=== PATIENT | male | born 1980 | race African-American/Black ===

== ENCOUNTER 2017-10-07 18:03 | Emergency (ER) | payer OTHER, MEDICAID, SELFPAY ==
--- NOTE | 2017-10-07 18:11 | ED.LOWEXIN ---
HPI - Extremity Injury (Lower) <GEORGIE Ortega - Last Filed: 10/07/17 22:18> General Chief Complaint: Extremity Injury, Lower Stated Complaint: LEFT ANKLE INJURY Time Seen by Provider: 10/07/17 18:11 Source: patient Mode of arrival: ambulatory Limitations: no limitations History of Present Illness HPI Narrative: 37-year-old male here for complaint of pain into his left ankle for the last 6 days. He states that he was playing basketball when he rolled his left ankle causing pain. He reports that he had good amount of swelling into the left ankle that has now resolved. He still has pain with ambulation to the medial aspect of the left ankle. He denies any direct trauma to the area. No other concerns or complaints at this time. He does report increased pain with ambulation. MD complaint: ankle injury Related Data Allergies Allergy/AdvReac Type Severity Reaction Status Date / Time No Known Drug Allergies Allergy Verified 10/07/17 18:19 Review of Systems <GEORGIE Ortega - Last Filed: 10/07/17 22:18> Eyes Denies change in vision, Denies eye discharge, Denies irritation and Denies loss of vision ENT Ears, Nose, Mouth, and Throat: Denies change in voice, Denies neck pain and Denies sore throat Cardiovascular Denies chest pain, Denies irregular heart rhythm, Denies lightheadedness, Denies palpitations, Denies dyspnea, Denies dyspnea on exertion and Denies orthopnea Respiratory Denies cough, Denies dyspnea, Denies dyspnea on exertion and Denies wheezing Gastrointestinal Gastrointestinal: Denies abdominal pain, Denies change in bowel habits, Denies diarrhea, Denies nausea and Denies vomiting Genitourinary Denies hematuria, Denies flank pain, Denies urinary incontinence and Denies urinary urgency Musculoskeletal Denies neck pain Comments: Left ankle pain Integumentary/Breasts Denies pruritus, Denies erythema, Denies rash and Denies wounds Neurologic Denies confusion and Denies loss of vision Psychiatric Denies anxiety, Denies confusion, Denies depression, Denies homicidal ideation and Denies suicidal ideation Endocrine Denies palpitations Hematologic/Lymphatic Denies easy bruising Allergic/Immunologic Denies wheezing Exam <GEORGIE Ortega - Last Filed: 10/07/17 22:18> Initial Vital Signs Initial Vital Signs: Vital Signs Temperature 98.4 F 10/07/17 18:14 Pulse Rate 78 10/07/17 18:14 Respiratory Rate 18 10/07/17 18:14 Blood Pressure 150/81 H 10/07/17 18:14 Pulse Oximetry 97 10/07/17 18:14 Const General: cooperative and well developed Nutritional Appearance: well nourished Orientation: alert, awake, oriented x3 and not confused HENMT Mouth: oral mucosae normal and moist mucous membranes Eyes Conjunctivae: conjunctivae normal Sclera: sclerae normal Pupils: PERRL EOM: EOM intact bilaterally Cardio Rate: regular rate Rhythm: regular rhythm Heart Sounds: no click, no gallops, no murmurs and no rubs Pulses: normal peripheral pulses Skin General: no rashes or lesions noted, No jaundice and No petechiae Neuro General: alert, oriented x3, gait normal and no focal motor deficits Speech: speech normal Extrem Other: Left ankle with no swelling no ecchymosis. No deformities. Full range of motion. Distal sensation is intact. Distal pulses are intact. <DO Deandra Cotto Last Filed: 10/08/17 02:28> Initial Vital Signs Initial Vital Signs: Vital Signs Temperature 98.4 F 10/07/17 18:14 Pulse Rate 78 10/07/17 18:14 Respiratory Rate 18 10/07/17 18:14 Blood Pressure 150/81 H 10/07/17 18:14 Pulse Oximetry 97 10/07/17 18:14 Course <GEORGIE Ortega - Last Filed: 10/07/17 22:18> Orders Ordered: ED Orders 10/07/17 18:32 XR ankle LT min 3V Stat 10/07/17 18:46 XR foot LT min 3V Stat Vital Signs - 8 hr 10/07/17 20:45 Pulse Rate 81 Respiratory Rate 16 Blood Pressure 144/78 H Pulse Oximetry 99 <DO Deandra Cotto Last Filed: 10/08/17 02:28> Orders Ordered: ED Orders 10/07/17 18:32 XR ankle LT min 3V Stat 10/07/17 18:46 XR foot LT min 3V Stat Vital Signs - 8 hr 10/07/17 20:45 Pulse Rate 81 Respiratory Rate 16 Blood Pressure 144/78 H Pulse Oximetry 99 MDM - Extremity Injury (Lower) <GEORGIE Ortega Last Filed: 10/07/17 22:18> Imaging Data Left foot : Radiologist's impression: PROCEDURE: XR FOOT LT MIN 3V INDICATIONS: swelling for a week TECHNIQUE: 30 views of the foot were acquired. COMPARISON: None. FINDINGS: Bones: No fractures or dislocations. No suspicious bony lesions. Soft tissues: No tibiotalar joint effusion. Achilles tendon appears normal. IMPRESSION: No acute fracture. No osseous lesion. If clinical suspicion and/or symptoms persist, further assessment with repeat plainfilms, or advanced imaging (e.g., CT, MRI, or bone scan) may be helpful for further assessment. Dictated by: Geraldine Rodriguez M.D. on 10/07/2017 at 19:06 Approved by: Geraldine Rodriguez M.D. on 10/07/2017 at 19:07 Left ankle : Radiologist's impression: PROCEDURE: XR ANKLE LT MIN 3V INDICATIONS: swelling over a week TECHNIQUE: 3 views of the ankle were acquired. COMPARISON: None. FINDINGS: Bones: No fractures or dislocations. Ankle mortise is normally aligned. No suspicious bony lesions. Soft tissues: No tibiotalar joint effusion. Achilles tendon appears normal. IMPRESSION: No acute fracture. No osseous lesion. If clinical suspicion and/or symptoms persist, further assessment with repeat plainfilms, or advanced imaging (e.g., CT, MRI, or bone scan) may be helpful for further assessment. Dictated by: Geraldine Rodriguez M.D. on 10/07/2017 at 19:05 Approved by: Geraldine Rodriguez M.D. on 10/07/2017 at 19:06 [facility] Narrative Medical decision making narrative: X-ray the left ankle left foot were obtained were negative for any acute findings. Signs and symptoms presents as acute sprain into the left ankle. He is placed in a stirrup splint for comfort and support. Crutches for nonweightbearing. Follow up with primary care provider next week for re-evaluation. If still having pain to left ankle recommend MRI for further evaluation. For any worsening symptoms return to the emergency room. Rest ankle allow it to heal. Discharge Plan Departure Patient Disposition: Home, Self-Care Clinical Impression: Left ankle sprain Discharge Date/Time: 10/07/17 20:47 Interventions: ED Discharge Assessment Last Done: 10/07/17 20:45 Instructions: Ankle Sprain Activity Restrictions/Additional Instructions: X-ray the left ankle left foot were obtained were negative for any acute findings. Signs and symptoms presents as acute sprain into the left ankle. You have been placed in a splint for comfort and support use as directed. Crutches for nonweightbearing also use as directed. Follow up with primary care provider next week for re-evaluation. [id number] ibuprofen as needed for any discomfort. If still having pain to left ankle recommend MRI for further evaluation. For any worsening symptoms return to the emergency room. Rest ankle allow it to heal. Referrals: Terri Ace MD [Primary Care Provider] - <Katelyn Jarrett DO - Last Filed: 10/08/17 02:28> Cosign ED Attending Cosignature Attestation: I was immediately available in the department for consultation. Documentation has been reviewed. I agree with assessment and plan.
[2017-10-07 18:14] VITALS: BP 150/81; PULSE 78; RESP 18; TEMP 36.9; O2SAT 97
--- NOTE | 2017-10-07 18:32 | DI.RAD.S_ITS ---
PROCEDURE: XR ANKLE LT MIN 3V INDICATIONS: swelling over a week TECHNIQUE: 3 views of the ankle were acquired. COMPARISON: None. FINDINGS: Bones: No fractures or dislocations. Ankle mortise is normally aligned. No suspicious bony lesions. Soft tissues: No tibiotalar joint effusion. Achilles tendon appears normal. IMPRESSION: No acute fracture. No osseous lesion. If clinical suspicion and/or symptoms persist, further assessment with repeat plainfilms, or advanced imaging (e.g., CT, MRI, or bone scan) may be helpful for further assessment. Dictated by: Geraldine Rodriguez M.D. on 10/07/2017 at 19:05 Approved by: Geraldine Rodriguez M.D. on 10/07/2017 at 19:06
--- NOTE | 2017-10-07 18:46 | DI.RAD.S_ITS ---
PROCEDURE: XR FOOT LT MIN 3V INDICATIONS: swelling for a week TECHNIQUE: 30 views of the foot were acquired. COMPARISON: None. FINDINGS: Bones: No fractures or dislocations. No suspicious bony lesions. Soft tissues: No tibiotalar joint effusion. Achilles tendon appears normal. IMPRESSION: No acute fracture. No osseous lesion. If clinical suspicion and/or symptoms persist, further assessment with repeat plainfilms, or advanced imaging (e.g., CT, MRI, or bone scan) may be helpful for further assessment. Dictated by: Geraldine Rodriguez M.D. on 10/07/2017 at 19:06 Approved by: Geraldine Rodriguez M.D. on 10/07/2017 at 19:07
--- NOTE | 2017-10-07 20:43 | PC.NURSE ---
pt stated he has used a stirup splint and crutches in the past. pt applied splint and nurse checked for proper fit. pt fit splint properly. pt demonstrated proper crutch use.
[2017-10-07 20:45] VITALS: BP 144/78; PULSE 81; RESP 16; O2SAT 99
== END 2017-10-07 20:47 | disposition home or self-care (01) ==
PROVIDERS: Emergency Provider Nurse Practitioner Family; Family Provider Nutritionist; PCP Nutritionist
DX: S93.402A Sprain of unspecified ligament of left ankle, initial encounter (principal); W18.49XA Other slipping, tripping and stumbling without falling, initial encounter; Y93.67 Activity, basketball
CPT/HCPCS: 29540; 73610; 73630; 99282; 99283

== ENCOUNTER 2017-10-20 12:19 | Emergency (ER) | payer OTHER, MEDICAID, SELFPAY ==
[2017-10-20 12:20] VITALS: BP 123/86; PULSE 61; RESP 16; TEMP 37; O2SAT 98
[2017-10-20 12:34] VITALS: BP 117/79; PULSE 59; RESP 15; TEMP 36.7; O2SAT 99
--- NOTE | 2017-10-20 12:36 | ED.CHESTPAIN ---
HPI - Chest Pain <GEORGIE Ortega - Last Filed: 10/20/17 22:37> General Chief Complaint: Chest Pain Stated Complaint: Chest pain Time Seen by Provider: 10/20/17 12:35 Source: patient Mode of arrival: ambulatory Limitations: no limitations History of Present Illness HPI narrative: 37-year-old male here for complaint of having right-sided chest pain that started 1-2 hours ago. He states that he was playing on the keyboard when the pain started. He reports that the pain has waned somewhat since it started. He denies any trauma to the area. He denies any stressors or relievers of the pain. He does report that he has had several episodes of this pain over the past couple of years and has had negative workups in the past, he does report that he has a history of anxiety although he does not feel like he is anxious at this timeframe. No shortness of breath. He is ambulatory. No diaphoresis. He does not report any recent illnesses. He denies any strenuous activity over the past few days. No other concerns or complaints at this time. MD complaint: chest pain Duration: improved Related Data Allergies Allergy/AdvReac Type Severity Reaction Status Date / Time No Known Drug Allergies Allergy Verified 10/07/17 18:19 Review of Systems <GEORGIE Ortega - Last Filed: 10/20/17 22:37> Constitutional Denies chills, Denies fatigue, Denies fever(s), Denies lethargy and Denies weakness Eyes Denies change in vision, Denies eye discharge, Denies irritation and Denies loss of vision ENT Ears, Nose, Mouth, and Throat: Denies change in voice, Denies neck pain and Denies sore throat Cardiovascular Reports chest pain, Denies dyspnea and Denies dyspnea on exertion Respiratory Denies cough, Denies dyspnea, Denies dyspnea on exertion and Denies wheezing Gastrointestinal Gastrointestinal: Denies abdominal pain, Denies change in bowel habits, Denies diarrhea, Denies nausea and Denies vomiting Genitourinary Denies hematuria, Denies flank pain, Denies urinary incontinence and Denies urinary urgency Musculoskeletal Denies neck pain Integumentary/Breasts Denies pruritus, Denies erythema, Denies rash and Denies wounds Neurologic Denies confusion, Denies loss of vision and Denies weakness Psychiatric Denies anxiety, Denies confusion, Denies depression, Denies homicidal ideation and Denies suicidal ideation Endocrine Denies fatigue and Denies flushing Hematologic/Lymphatic Denies easy bruising Allergic/Immunologic Denies wheezing Exam <GEORGIE Ortega - Last Filed: 10/20/17 22:37> Initial Vital Signs Initial Vital Signs: Vital Signs Temperature 98.6 F 10/20/17 12:20 Pulse Rate 61 10/20/17 12:20 Respiratory Rate 16 10/20/17 12:20 Blood Pressure 123/86 H 10/20/17 12:20 Pulse Oximetry 98 10/20/17 12:20 Const General: cooperative and well developed Nutritional Appearance: well nourished Orientation: alert, awake, oriented x3 and not confused HENTN Mouth: oral mucosae normal and moist mucous membranes Eyes Conjunctivae: conjunctivae normal Sclera: sclerae normal Pupils: PERRL EOM: EOM intact bilaterally Chest Chest: normal inspection of the chest Resp Effort & Inspection: normal respiratory effort, able to speak in complete sentences, no respiratory distress and no use of accessory muscles Auscultation: clear to auscultation bilaterally, no rales, no rhonchi and no wheezes Cardio Rate: regular rate Rhythm: regular rhythm Heart Sounds: no click, no gallops, no murmurs and no rubs Pulses: normal peripheral pulses GI Inspection: non-distended Palpation: soft, no hepatosplenomegaly, No guarding, No pulsatile mass and No tender Auscultation: normal bowel sounds Skin General: no rashes or lesions noted, No jaundice and No petechiae Neuro General: alert, oriented x3, gait normal and no focal motor deficits Speech: speech normal <Varinder White DO - Last Filed: 10/21/17 07:02> Initial Vital Signs Initial Vital Signs: Vital Signs Temperature 98.6 F 10/20/17 12:20 Pulse Rate 61 10/20/17 12:20 Respiratory Rate 16 10/20/17 12:20 Blood Pressure 123/86 H 10/20/17 12:20 Pulse Oximetry 98 10/20/17 12:20 Scores <GEORGIE Ortega - Last Filed: 10/20/17 22:37> HEART Score Heart Score history: Slightly Suspicious Heart Score EKG: Normal Heart Score Age: < 45 years old Heart Score risk factors: No known risk factors Heart Score troponin: < or = to normal limit Heart Score Total: 0 PERC Score Age greater than or equal to 50 years: No Heart rate greater than or equal to 100 bpm: No Room Air O2 Sat less than 95%: No Unilateral leg swelling: No Recent trauma or surgery: No Hemoptysis: No Prior PE or DVT: No Hormone Use: No Total PERC Score: 0 Course <GEORGIE Ortega - Last Filed: 10/20/17 22:37> Orders Ordered: Discontinued Medications Aspirin (Aspirin Chew) 324 mg PO NOW ONE Stop: 10/20/17 12:46 Last Admin: 10/20/17 13:06 Dose: 324 mg Sodium Chloride (Normal Saline 0.9%) 1,000 mls @ 1,000 mls/hr IV BOLUS ONE Stop: 10/20/17 13:44 Last Infusion: 10/20/17 14:27 Dose: 0 mls/hr Admin: 10/20/17 13:06 Dose: 1,000 mls/hr Vital Signs - 8 hr 10/20/17 15:37 10/20/17 15:42 Pulse Rate 63 66 Respiratory Rate 16 23 Blood Pressure [Left Arm] 108/70 108/70 Pulse Oximetry 100 100 <Varinder White DO - Last Filed: 10/21/17 07:02> Orders Ordered: Discontinued Medications Aspirin (Aspirin Chew) 324 mg PO NOW ONE Stop: 10/20/17 12:46 Last Admin: 10/20/17 13:06 Dose: 324 mg Sodium Chloride (Normal Saline 0.9%) 1,000 mls @ 1,000 mls/hr IV BOLUS ONE Stop: 10/20/17 13:44 Last Infusion: 10/20/17 14:27 Dose: 0 mls/hr Admin: 10/20/17 13:06 Dose: 1,000 mls/hr Vital Signs - 8 hr 10/20/17 15:37 10/20/17 15:42 Pulse Rate 63 66 Respiratory Rate 16 23 Blood Pressure [Left Arm] 108/70 108/70 Pulse Oximetry 100 100 MDM - Chest Pain <GEORGIE Ortega - Last Filed: 10/20/17 22:37> Lab Data Result diagrams: 10/20/17 12:50 10/20/17 12:50 Lab Results 10/20/17 10/20/1718 Range/Units 12:50 12:50 12:50 WBC 3.6 L (4.5-11.0) X10^3/uL RBC 5.27 (4.5-5.9) X10^6/uL Hgb 15.0 (13.5-17.5) g/dL Hct 44.0 (41-53) % MCV 83.3 (80-100) fL MCH 28.5 (26-34) PG MCHC 34.2 (30-36) % RDW 14.7 (11.6-14.8) % Plt Count 207 (150-400) X10^3/uL Neut % (Auto) 44.9 L (50-75) % Lymph % (Auto) 41.9 H (25-40) % [place] % (Auto) 8.7 (3-14) % Eos % (Auto) 3.5 (2-4) % Baso % (Auto) 1.0 (0-2) % Neut # (Auto) 1600 L (8240-9218) /uL Sodium 143 (137-145) mmol/L Potassium 4.2 (3.4-5.1) mmol/L Chloride 102 (98-107) mmol/L Carbon Dioxide 31 (22-32) mmol/L BUN 12 (9-20) mg/dL Creatinine 1.00 (0.66-1.25) mg/dL Estimated GFR > 60.0 (>60) mL/min BUN/Creatinine Ratio 12.0 (6-22) Glucose 100 (70-100) mg/dL Calcium 9.8 (8.4-10.2) mg/dL Total Bilirubin 0.4 (0.2-1.3) mg/dL AST 27 (17-59) IU/L ALT 36 (21-72) IU/L Alkaline Phosphatase 54 (38-126) U/L Total Creatine Kinase 373 H (55-170) U/L CK-MB (CK-2) 1.43 (<2.37) ng/mL CK-MB (CK-2) Rel Index 0.4 L (1.5-5.0) % Troponin I < 0.012 Cancelled (0.01-0.034) ng/mL Total Protein 7.7 (6.3-8.2) g/dL Albumin 4.3 (3.5-5.0) g/dL Globulin 3.4 (1.7-4.1) g/dL Albumin/Globulin Ratio 1.3 (1.0-2.8) 10/20/17 Range/Units 13:50 WBC (4.5-11.0) X10^3/uL RBC (4.5-5.9) X10^6/uL Hgb (13.5-17.5) g/dL Hct (41-53) % MCV (80-100) fL MCH (26-34) PG MCHC (30-36) % RDW (11.6-14.8) % Plt Count (150-400) X10^3/uL Neut % (Auto) (50-75) % Lymph % (Auto) (25-40) % [place] % (Auto) (3-14) % Eos % (Auto) (2-4) % Baso % (Auto) (0-2) % Neut # (Auto) (1987-8646) /uL Sodium (137-145) mmol/L Potassium (3.4-5.1) mmol/L Chloride (98-107) mmol/L Carbon Dioxide (22-32) mmol/L BUN (9-20) mg/dL Creatinine (0.66-1.25) mg/dL Estimated GFR (>60) mL/min BUN/Creatinine Ratio (6-22) Glucose (70-100) mg/dL Calcium (8.4-10.2) mg/dL Total Bilirubin (0.2-1.3) mg/dL AST (17-59) IU/L ALT (21-72) IU/L Alkaline Phosphatase (38-126) U/L Total Creatine Kinase (55-170) U/L CK-MB (CK-2) (<2.37) ng/mL CK-MB (CK-2) Rel Index (1.5-5.0) % Troponin I < 0.012 (0.01-0.034) ng/mL Total Protein (6.3-8.2) g/dL Albumin (3.5-5.0) g/dL Globulin (1.7-4.1) g/dL Albumin/Globulin Ratio (1.0-2.8) Imaging Data Chest x-ray: Radiologist's impression: PROCEDURE: XR CHEST 1V INDICATIONS: chest pain TECHNIQUE: One view of the chest was acquired. COMPARISON: None. FINDINGS: Surgical changes and devices: None. Lungs and pleura: No pleural effusions or pneumothorax. Lungs are clear. Mediastinum: Mediastinal contours appear normal. Heart size is normal. Bones and chest wall: No suspicious bony lesions. Overlying soft tissues appear unremarkable. IMPRESSION: Negative chest. No acute process is evident. Dictated by: Kumar Mcclain M.D. on 10/20/2017 at 12:21 Approved by: Kumar Mcclain M.D. on 10/20/2017 at 12:21 ECG Data Interpretation: EKG shows sinus bradycardia with no ST elevation or depression. No ectopy. Ventricular rate of 55. Pr interval of 163. QRS duration 93. QT of 396. MDM Narrative Medical decision making narrative: EKG shows sinus rhythm with no ST elevation or depression. No ectopy. Chest x-ray was obtained was unremarkable. CBC and Chem panel were obtained and were negative. 2 sets of troponin were obtained were negative. Signs and symptoms presents as chest wall pain. Differential of anxiety pain. He is referred to his primary care provider for further evaluation and treatment with consideration for echocardiogram/stress test. <Varinder White, DO - Last Filed: 10/21/17 07:02> Lab Data Lab Results 10/20/17 10/20/17 10/20/17 Range/Units 12:50 12:50 12:50 WBC 3.6 L (4.5-11.0) X10^3/uL RBC 5.27 (4.5-5.9) X10^6/uL Hgb 15.0 (13.5-17.5) g/dL Hct 44.0 (41-53) % MCV 83.3 (80-100) fL MCH 28.5 (26-34) PG MCHC 34.2 (30-36) % RDW 14.7 (11.6-14.8) % Plt Count 207 (150-400) X10^3/uL Neut % (Auto) 44.9 L (50-75) % Lymph % (Auto) 41.9 H (25-40) % [place] % (Auto) 8.7 (3-14) % Eos % (Auto) 3.5 (2-4) % Baso % (Auto) 1.0 (0-2) % Neut # (Auto) 1600 L (8943-4039) /uL Sodium 143 (137-145) mmol/L Potassium 4.2 (3.4-5.1) mmol/L Chloride 102 (98-107) mmol/L Carbon Dioxide 31 (22-32) mmol/L BUN 12 (9-20) mg/dL Creatinine 1.00 (0.66-1.25) mg/dL Estimated GFR > 60.0 (>60) mL/min BUN/Creatinine Ratio 12.0 (6-22) Glucose 100 (70-100) mg/dL Calcium 9.8 (8.4-10.2) mg/dL Total Bilirubin 0.4 (0.2-1.3) mg/dL AST 27 (17-59) IU/L ALT 36 (21-72) IU/L Alkaline Phosphatase 54 (38-126) U/L Total Creatine Kinase 373 H (55-170) U/L CK-MB (CK-2) 1.43 (<2.37) ng/mL CK-MB (CK-2) Rel Index 0.4 L (1.5-5.0) % Troponin I < 0.012 Cancelled (0.01-0.034) ng/mL Total Protein 7.7 (6.3-8.2) g/dL Albumin 4.3 (3.5-5.0) g/dL Globulin 3.4 (1.7-4.1) g/dL Albumin/Globulin Ratio 1.3 (1.0-2.8) 10/20/ Range/Units 13:50 WBC (4.5-11.0) X10^3/uL RBC (4.5-5.9) X10^6/uL Hgb (13.5-17.5) g/dL Hct (41-53) % MCV (80-100) fL MCH (26-34) PG MCHC (30-36) % RDW (11.6-14.8) % Plt Count (150-400) X10^3/uL Neut % (Auto) (50-75) % Lymph % (Auto) (25-40) % [place] % (Auto) (3-14) % Eos % (Auto) (2-4) % Baso % (Auto) (0-2) % Neut # (Auto) (8411-9635) /uL Sodium (137-145) mmol/L Potassium (3.4-5.1) mmol/L Chloride (98-107) mmol/L Carbon Dioxide (22-32) mmol/L BUN (9-20) mg/dL Creatinine (0.66-1.25) mg/dL Estimated GFR (>60) mL/min BUN/Creatinine Ratio (6-22) Glucose (70-100) mg/dL Calcium (8.4-10.2) mg/dL Total Bilirubin (0.2-1.3) mg/dL AST (17-59) IU/L ALT (21-72) IU/L Alkaline Phosphatase (38-126) U/L Total Creatine Kinase (55-170) U/L CK-MB (CK-2) (<2.37) ng/mL CK-MB (CK-2) Rel Index (1.5-5.0) % Troponin I < 0.012 (0.01-0.034) ng/mL Total Protein (6.3-8.2) g/dL Albumin (3.5-5.0) g/dL Globulin (1.7-4.1) g/dL Albumin/Globulin Ratio (1.0-2.8) Discharge Plan Departure Patient Disposition: Home Clinical Impression: Atypical chest pain Discharge Date/Time: 10/20/17 16:14 Interventions: ED Discharge Assessment Last Done: 10/20/17 16:13 Instructions: DI for Chest Pain Activity Restrictions/Additional Instructions: EKG, chest x-ray and laboratory results today were unremarkable. Signs and symptoms presents as chest wall pain. Recommend follow up with her primary care provider next week for further evaluation and discussion whether further testing such as echocardiogram or stress test is warranted. Use [id number] ibuprofen as needed for any discomfort. For any worsening symptoms return to the emergency room. Referrals: Terri Ace MD [Primary Care Provider] - <Varinder White DO - Last Filed: 10/21/17 07:02> Cosign ED Attending Chata Attestation: I was available for consultation during this patient's emergency department encounter
--- NOTE | 2017-10-20 12:45 | DI.RAD.S_ITS ---
PROCEDURE: XR CHEST 1V INDICATIONS: chest pain TECHNIQUE: One view of the chest was acquired. COMPARISON: None. FINDINGS: Surgical changes and devices: None. Lungs and pleura: No pleural effusions or pneumothorax. Lungs are clear. Mediastinum: Mediastinal contours appear normal. Heart size is normal. Bones and chest wall: No suspicious bony lesions. Overlying soft tissues appear unremarkable. IMPRESSION: Negative chest. No acute process is evident. Dictated by: Kumar Mcclain M.D. on 10/20/2017 at 12:21 Approved by: Kumar Mcclain M.D. on 10/20/2017 at 12:21
[2017-10-20 13:05] LABS: Add Manual Diff / Slide Review NO; Eosinophils Percent Auto 3.5 % (2-4); Lymphocytes Percent Auto 41.9 % (25-40); Mean Corpuscular HGB Conc 34.2 % (30-36); Mean Corpuscular Hemoglobin 28.5 PG (26-34); Mean Corpuscular Volume 83.3 fL (80-100); Monocytes Percent Auto 8.7 % (3-14); Neutrophils Absolute Auto 1600 /uL (3000-5900); Neutrophils Percent Auto 44.9 % (50-75); Platelet Count 207 X10^3/uL (150-400); Red Blood Cell Count 5.27 X10^6/uL (4.5-5.9); Red Cell Distribution Width 14.7 % (11.6-14.8); White Blood Cell Count 3.6 X10^3/uL (4.5-11.0)
[2017-10-20] MEDS: ASPIRIN 81 MG TAB 324 MG PO (13:06)
[2017-10-20] MEDS: SODIUM CHLORIDE 0.9% 1,000 ML 1000 ML IV (13:06)
[2017-10-20 13:12] LABS: Alanine Aminotransferase 36 IU/L (21-72); Albumin 4.3 g/dL (3.5-5.0); Albumin Globulin Ratio 1.3 (1.0-2.8); Alkaline Phosphatase 54 U/L (38-126); Aspartate Aminotransferase 27 IU/L (17-59); Bilirubin Total 0.4 mg/dL (0.2-1.3); Blood Urea Nitrogen 12 mg/dL (9-20); Calcium 9.8 mg/dL (8.4-10.2); Carbon Dioxide 31 mmol/L (22-32); Chloride 102 mmol/L (98-107); Creatine Kinase 373 U/L (55-170); Estimated Glomerular Filt Rate > 60.0 mL/min (>60); Globulin 3.4 g/dL (1.7-4.1); Glucose 100 mg/dL (70-100); HEMOLYSIS < 15 (0-50); Potassium 4.2 mmol/L (3.4-5.1); Sodium 143 mmol/L (137-145); Total Protein 7.7 g/dL (6.3-8.2)
[2017-10-20 13:28] LABS: CKMB % Relative Index 0.4 % (1.5-5.0); Creatine Kinase MB 1.43 ng/mL (<2.37); Troponin I < 0.012 ng/mL (0.01-0.034)
[2017-10-20 13:46] VITALS: BP 112/81; PULSE 59; RESP 16; O2SAT 99
[2017-10-20 14:28] VITALS: BP 117/87; PULSE 55; RESP 16; O2SAT 100
[2017-10-20 15:30] LABS: Troponin I < 0.012 ng/mL (0.01-0.034)
[2017-10-20 15:37] VITALS: BP 108/70; PULSE 63; RESP 16; O2SAT 100
[2017-10-20 15:42] VITALS: BP 108/70; PULSE 66; RESP 23; O2SAT 100
== END 2017-10-20 16:14 | disposition home or self-care (01) ==
PROVIDERS: Emergency Provider Nurse Practitioner Family; Family Provider Nutritionist; PCP Nutritionist
DX: R07.89 Other chest pain (principal)
CPT/HCPCS: 36415; 36591; 71045; 80053; 82550; 82553; 84484; 85025; 93005; 93010; 96360; 99283; 99285

== ENCOUNTER 2017-11-22 19:48 | Emergency (ER) | payer OTHER, MEDICAID, SELFPAY ==
[2017-11-22 20:01] VITALS: BP 125/87; PULSE 67; RESP 14; TEMP 36.4; O2SAT 93; BMI 32.1
--- NOTE | 2017-11-22 21:01 | DI.RAD.S_ITS ---
PROCEDURE: XR FOOT LT MIN 3V INDICATIONS: foot injury TECHNIQUE: 3 views of the foot were acquired. COMPARISON: [facility], CR, XR ANKLE LT MIN 3V, 11/22/2017, 21:07. [facility], CR, XR FOOT LT MIN 3V, 10/07/2017, 18:23. FINDINGS: Bones: No fractures or dislocations. No suspicious bony lesions. Soft tissues: No tibiotalar joint effusion. Achilles tendon appears normal. IMPRESSION: No acute fracture. No osseous lesion. If clinical suspicion and/or symptoms persist, further assessment with repeat plainfilms, or advanced imaging (e.g., CT, MRI, or bone scan) may be helpful for further assessment. Dictated by: Geraldine Rodriguez M.D. on 11/22/2017 at 21:48 Approved by: Geraldine Rodriguez M.D. on 11/22/2017 at 21:48
--- NOTE | 2017-11-22 21:03 | ED.LOWEXIN ---
HPI - Extremity Injury (Lower) <GEORGIE Ortega - Last Filed: 11/22/17 22:14> General Chief Complaint: Extremity Injury, Lower Stated Complaint: left side foot pain and feels crunching Time Seen by Provider: 11/22/17 21:04 History of Present Illness HPI Narrative: 37-year-old male here for complaint of ongoing pain to his left ankle. He states that he sprained his ankle approximately 1 month ago and states that has not been healing. He feels like he has what he states as 'crunching' in his left ankle since that timeframe. He was seen here September and was negative. He denies any new trauma to the area. Wrist pain with ambulation at times. No other concerns or complaints MD complaint: ankle injury Related Data Allergies Allergy/AdvReac Type Severity Reaction Status Date / Time No Known Drug Allergies Allergy Verified 11/22/17 20:01 Review of Systems <GEORGIE Ortega - Last Filed: 11/22/17 22:14> Constitutional Denies chills, Denies fever(s), Denies lethargy and Denies weakness Eyes Denies change in vision, Denies eye discharge, Denies irritation and Denies loss of vision ENT Ears, Nose, Mouth, and Throat: Denies change in voice, Denies neck pain and Denies sore throat Cardiovascular Denies chest pain, Denies irregular heart rhythm, Denies lightheadedness, Denies palpitations, Denies dyspnea, Denies dyspnea on exertion and Denies orthopnea Respiratory Denies cough, Denies dyspnea, Denies dyspnea on exertion and Denies wheezing Gastrointestinal Gastrointestinal: Denies abdominal pain, Denies change in bowel habits, Denies diarrhea, Denies nausea and Denies vomiting Genitourinary Denies hematuria, Denies flank pain, Denies urinary incontinence and Denies urinary urgency Musculoskeletal Denies neck pain Comments: Left ankle pain Integumentary/Breasts Denies pruritus, Denies erythema, Denies rash and Denies wounds Neurologic Denies confusion, Denies loss of vision and Denies weakness Psychiatric Denies anxiety, Denies confusion, Denies depression, Denies homicidal ideation and Denies suicidal ideation Endocrine Denies palpitations Hematologic/Lymphatic Denies easy bruising Allergic/Immunologic Denies wheezing Exam <GEORGIE Ortega - Last Filed: 11/22/17 22:14> Initial Vital Signs Initial Vital Signs: Vital Signs Temperature 97.5 F L 11/22/17 20:01 Pulse Rate 67 11/22/17 20:01 Respiratory Rate 14 11/22/17 20:01 Blood Pressure 125/87 11/22/17 20:01 Pulse Oximetry 93 11/22/17 20:01 Const General: cooperative and well developed Nutritional Appearance: well nourished Orientation: alert, awake, oriented x3 and not confused [facility] Mouth: oral mucosae normal and moist mucous membranes Eyes Conjunctivae: conjunctivae normal Sclera: sclerae normal Pupils: PERRL EOM: EOM intact bilaterally Resp Effort & Inspection: normal respiratory effort, able to speak in complete sentences, no respiratory distress and no use of accessory muscles Auscultation: clear to auscultation bilaterally, no rales, no rhonchi and no wheezes Cardio Rate: regular rate Rhythm: regular rhythm Heart Sounds: no click, no gallops, no murmurs and no rubs Pulses: normal peripheral pulses Skin General: no rashes or lesions noted, No jaundice and No petechiae Neuro General: alert, oriented x3, gait normal and no focal motor deficits Speech: speech normal Extrem Other: Left ankle with no signs of trauma. No ecchymosis. No swelling. No erythema. Distal sensation is intact. Distal pulses are intact. Full range of motion. <Sandor Hernandez DO - Last Filed: 11/23/17 02:11> Initial Vital Signs Initial Vital Signs: Vital Signs Temperature 97.5 F L 11/22/17 20:01 Pulse Rate 67 11/22/17 20:01 Respiratory Rate 14 11/22/17 20:01 Blood Pressure 125/87 11/22/17 20:01 Pulse Oximetry 93 11/22/17 20:01 Course <GEORGIE Ortega - Last Filed: 11/22/17 22:14> Orders Ordered: ED Orders 11/22/17 21:01 XR foot LT min 3V Stat 11/22/17 21:19 XR ankle LT min 3V Stat Discontinued Medications Acetaminophen (Tylenol) 650 mg PO NOW ONE Stop: 11/22/17 21:25 Last Admin: 11/22/17 21:38 Dose: 650 mg Vital Signs - 8 hr 11/22/17 20:01 Temperature 97.5 F L Pulse Rate 67 Respiratory Rate 14 Blood Pressure 125/87 Pulse Oximetry 93 <Sandor Hernandez DO - Last Filed: 11/23/17 02:11> Orders Ordered: ED Orders 11/22/17 21:01 XR foot LT min 3V Stat 11/22/17 21:19 XR ankle LT min 3V Stat Discontinued Medications Acetaminophen (Tylenol) 650 mg PO NOW ONE Stop: 11/22/17 21:25 Last Admin: 11/22/17 21:38 Dose: 650 mg Vital Signs - 8 hr 11/22/17 20:01 Temperature 97.5 F L Pulse Rate 67 Respiratory Rate 14 Blood Pressure 125/87 Pulse Oximetry 93 MDM - Extremity Injury (Lower) <GEORGIE Ortega - Last Filed: 11/22/17 22:14> Imaging Data Left foot: Radiologist's impression: X-ray the left wrist shows possible distal states radial styloid fracture minimally displaced. He is placed in a sugar-tong splint for comfort and support. [id number] Tylenol or Motrin as needed for any discomfort. Follow up with Orthopedics parents instructed to call the number and number for right is schedule follow-up appointment in the next few days. Ice and elevation help with any swelling. Rest. For any worsening symptoms return to the emergency room. Left ankle : Radiologist's impression: [address] [address] XRay Report Signed Patient: Dedrick Patterson R#: [id number] : 1980Acct:[id number] Age/Sex: 37 / MDate of Service: 11/22/17 Loc: ED Accession Number: [id number] Procedure: XR ankle LT min 3V Ordering Provider: Darin Cotton PROCEDURE: XR ANKLE LT MIN 3V INDICATIONS: Continued pain to left ankle over last month TECHNIQUE: 3 views of the ankle were acquired. [facility], [facility], XR ANKLE LT MIN 3V, 10/07/2017, 18:13. FINDINGS: Bones: No fractures or dislocations. Ankle mortise is normally aligned. No suspicious bony lesions. Soft tissues: No tibiotalar joint effusion. Achilles tendon appears normal. IMPRESSION: No acute fracture. No osseous lesion. If clinical suspicion and/or symptoms persist, further assessment with repeat plainfilms, or advanced imaging (e.g., CT, MRI, or bone scan) may be helpful for further assessment. Dictated by: Geraldine Rodriguez M.D. on 11/22/2017 at 21:49 Approved by: Geraldine Rodriguez M.D. on 11/22/2017 MDM Narrative Medical decision making narrative: X-ray the left foot and left ankle were obtained was negative for any acute fractures or findings. Patient struck to follow up with primary care provider next week for re-evaluation and discussion of MRI at this pain has been for over the last month. I offered him a ankle splint he refused. [id number] Tylenol or Motrin as needed for discomfort. First any worsening symptoms return to the emergency room Discharge Plan Departure Patient Disposition: Home Clinical Impression: Ankle sprain and strain Discharge Date/Time: 11/22/17 22:15 Interventions: ED Discharge Assessment Last Done: 11/22/17 22:14 Instructions: DI for Ankle Pain Activity Restrictions/Additional Instructions: X-ray the left foot and left ankle were again obtained and were negative for any fractures. Follow up with her primary care provider next week and due to length of symptoms recommend discussion of MRI for further evaluation of soft tissues. Continue use Tylenol or Motrin as needed for any discomfort. For any worsening symptoms return to the emergency room. Referrals: Terri Ace MD [Primary Care Provider] - <Sandor Hernandez DO - Last Filed: 11/23/17 02:11> Cosign ED Attending Chata Attestation: I was immediately available in the department for consultation. Documentation has been reviewed. I agree with assessment and plan.
--- NOTE | 2017-11-22 21:19 | DI.RAD.S_ITS ---
PROCEDURE: XR ANKLE LT MIN 3V INDICATIONS: Continued pain to left ankle over last month TECHNIQUE: 3 views of the ankle were acquired. COMPARISON: [facility], CR, XR FOOT LT MIN 3V, 10/07/2017, 18:23. [facility], CR, XR ANKLE LT MIN 3V, 10/07/2017, 18:13. FINDINGS: Bones: No fractures or dislocations. Ankle mortise is normally aligned. No suspicious bony lesions. Soft tissues: No tibiotalar joint effusion. Achilles tendon appears normal. IMPRESSION: No acute fracture. No osseous lesion. If clinical suspicion and/or symptoms persist, further assessment with repeat plainfilms, or advanced imaging (e.g., CT, MRI, or bone scan) may be helpful for further assessment. Dictated by: Geraldine Rodriguez M.D. on 11/22/2017 at 21:49 Approved by: Geraldine Rodriguez M.D. on 11/22/2017 at 21:49
[2017-11-22] MEDS: ACETAMINOPHEN 325 MG TABLET 650 MG PO (21:38)
== END 2017-11-22 22:15 | disposition home or self-care (01) ==
PROVIDERS: Emergency Provider Nurse Practitioner Family; Family Provider Nutritionist; PCP Nutritionist
DX: S93.402A Sprain of unspecified ligament of left ankle, initial encounter (principal); S96.912A Strain of unspecified muscle and tendon at ankle and foot level, left foot, initial encounter
CPT/HCPCS: 73610; 73630; 99282; 99283

== ENCOUNTER 2021-12-06 09:10 | Emergency (ER) | payer OTHER, MEDICAID, SELFPAY ==
[2021-12-06] VITALS (11 sets, daily range): BP systolic 108–119; BP diastolic 71–76; PULSE 55–78; RESP 16–19; TEMP 36.8; O2SAT 95–98; BMI 33.2
--- NOTE | 2021-12-06 10:10 | ED_ITS ---
HPI - Chest Pain General Chief Complaint: Chest Pain Stated Complaint: skin on head welts soreness in eyes chest pain Time Seen by Provider: 12/06/21 09:23 Source: patient Mode of arrival: Ambulatory Limitations: no limitations History of Present Illness HPI narrative: 41-year-old male who is here for evaluation of sores on his head, discoloration in his scalp, fatigue, chest discomfort, muscle aches. No fevers. The lesions on his scalp were causing him to have quite a bit of itching so he actually shaved his head. He is not have any symptoms of jock itch. Has had athlete's foot in the past but no symptoms that now. He is a father who has sarcoid. Has a cousin who from sarcoid. He is never been diagnosed with sarcoid in the past. He has been having some light sensitivity recently. He went to his eye doctor and got a new prescription that he can use with dark and lenses to help with his light sensitivity. Related Data Previous Rx's Medication Instructions Recorded griseofulvin microsize 500 mg 500 mg PO DAILY 14 days #14 tabs 12/06/21 tablet ketoconazole 2 % shampoo 1 applic topical 3XW 2 weeks #120 12/06/21 mL Allergies Allergy/AdvReac Type Severity Reaction Status Date / Time No Known Drug Allergies Allergy Verified 12/06/21 09:39 Review of Systems Review of Systems ROS Unobtainable: All systems reviewed & are unremarkable except as noted in HPI and below Patient History Medical History (Updated 12/06/21 @ 12:51 by Varinder White DO) Anxiety No significant past medical history Social History Smoking Status: Never smoker Smoking Status: Never smoker alcohol intake frequency: 0-2 drinks per day Substance Use Type: does not use Exam Initial Vital Signs Initial Vital Signs: Vital Signs Temperature 98.3 F 12/06/21 09:24 Pulse Rate 64 12/06/21 09:24 Pulse Oximetry 97 12/06/21 09:24 Const General: cooperative, comfortable, well developed and No ill appearing HENMT Head: No abrasion and No contusion Face and sinus: normal facial exam Eyes General: Yes appearance normal, both eyes and all related structures Resp Effort & Inspection: normal respiratory effort Auscultation: clear to auscultation bilaterally Cardio Rate: regular rate Rhythm: regular rhythm Skin Other: Patient does have a light discoloration to his scalp that extends from his hairline back to the crown of his head. There are no specific lesions to include vesicles or blisters or ulcerations. No erythema. Neuro General: patient alert, patient awake, patient oriented x3 and moves all extremities Extrem General: normal to inspection and capillary refill normal Psych Appearance: grossly normal Course Orders Ordered: ED Orders 12/06/21 09:36 EKG-12 Lead Routine 12/06/21 10:13 XR chest 1V Stat 12/06/21 10:45 Basic Metabolic Panel Stat C-Reactive Protein Quant Stat Complete Blood Count AUTO DIFF Stat Erythrocyte Sedimentation Rate Stat 12/06/21 11:37 TSH [Thyroid Stimulating Hormone] Stat Discontinued Medications Sodium Chloride (Normal Saline 0.9%) 1,000 mls @ 1,000 mls/hr IV BOLUS ONE Stop: 12/06/21 12:36 Last Admin: 12/06/21 11:53 Dose: 1,000 mls/hr Documented By: AT Vital Signs Vital signs: Vital Signs - 8 hr 12/06/21 09:35 12/06/21 09:24 12/06/21 09:30 Temperature 98.3 F 98.3 F Pulse Rate 64 61 Respiratory Rate Blood Pressure Pulse Oximetry 97 98 Oxygen Delivery Method 12/06/21 09:32 12/06/21 09:32 12/06/21 10:00 Temperature Pulse Rate 59 L Respiratory Rate Blood Pressure 119/76 108/71 Pulse Oximetry 96 Oxygen Delivery Method Room Air 12/06/21 10:00 12/06/21 10:30 12/06/21 10:30 Temperature Pulse Rate 58 L 56 L Respiratory Rate 19 17 Blood Pressure 116/74 Pulse Oximetry 97 95 Oxygen Delivery Method 12/06/21 11:00 Temperature Pulse Rate 61 Respiratory Rate 18 Blood Pressure Pulse Oximetry 97 Oxygen Delivery Method MDM - Chest Pain Lab Data Attestation: I reviewed the patient's lab results. Result diagrams: 12/06/21 10:45 12/06/21 10:45 Labs: Lab Results 12/06/21 12/06/21 12/06/21 Range/Units 10:45 10:45 10:45 WBC 3.5 L (4.5-11.0) X10^3/uL RBC 5.13 (4.5-5.9) X10^6/uL Hgb 14.3 (13.5-17.5) g/dL Hct 43.3 (41-53) % MCV 84.4 (80-100) fL MCH 27.8 (26-34) PG MCHC 32.9 (30-36) % RDW 14.4 (11.6-14.8) % Plt Count 198 (150-400) X10^3/uL Neut % (Auto) 41.7 L (50-75) % Lymph % (Auto) 45.9 H (25-40) % [place] % (Auto) 7.2 (3-14) % Eos % (Auto) 4.2 H (2-4) % Baso % (Auto) 1.0 (0-2) % Neut # (Auto) 1500 (0240-2471) /uL Lymph # (Auto) 1600 (6218-3201) /uL [place] # (Auto) 300 (0-900) /uL Eos # (Auto) 100 (0-450) /uL Baso # (Auto) 0 (0-100) /uL ESR 4 (0-15) MM/HR Sodium 138 (137-145) mmol/L Potassium 4.4 (3.4-5.1) mmol/L Chloride 100 (98-107) mmol/L Carbon Dioxide 28 (22-32) mmol/L BUN 18 (9-20) mg/dL Creatinine 1.32 H (0.66-1.25) mg/dL Estimated GFR > 60 (>60) mL/min BUN/Creatinine Ratio 13.6 (6-22) Glucose 98 (70-100) mg/dL Calcium 9.5 (8.4-10.2) mg/dL C-Reactive Protein < 0.5 (<1.0) mg/dL TSH (0.47-4.68) uIU/mL 12/06/21 Range/Units 11:37 WBC (4.5-11.0) X10^3/uL RBC (4.5-5.9) X10^6/uL Hgb (13.5-17.5) g/dL Hct (41-53) % MCV (80-100) fL MCH (26-34) PG MCHC (30-36) % RDW (11.6-14.8) % Plt Count (150-400) X10^3/uL Neut % (Auto) (50-75) % Lymph % (Auto) (25-40) % [place] % (Auto) (3-14) % Eos % (Auto) (2-4) % Baso % (Auto) (0-2) % Neut # (Auto) (2614-4191) /uL Lymph # (Auto) (2303-4200) /uL [place] # (Auto) (0-900) /uL Eos # (Auto) (0-450) /uL Baso # (Auto) (0-100) /uL ESR (0-15) MM/HR Sodium (137-145) mmol/L Potassium (3.4-5.1) mmol/L Chloride (98-107) mmol/L Carbon Dioxide (22-32) mmol/L BUN (9-20) mg/dL Creatinine (0.66-1.25) mg/dL Estimated GFR (>60) mL/min BUN/Creatinine Ratio (6-22) Glucose (70-100) mg/dL Calcium (8.4-10.2) mg/dL C-Reactive Protein (<1.0) mg/dL TSH 1.36 (0.47-4.68) uIU/mL Imaging Data Chest x-ray: Radiologist's Impression: [address] [address] XRay Report Signed Patient: Dedrick Patterson MR#: [id number] : 1980 Acct:[id number] Age/Sex: 41 / M Date of Service: 12/06/21 Loc: ED Accession Number: [id number] ?? Procedure: XR chest 1V Ordering Provider: Varinder White D.O. PROCEDURE:? XR CHEST 1V ? INDICATIONS:? SOB ? TECHNIQUE:? One view of the chest was acquired.? ? [facility] ? FINDINGS:? ? Surgical changes and devices:? None.? ? Lungs and pleura:? Lungs are clear.? No pleural effusions or pneumothorax.? ? Mediastinum:? Mediastinal contours appear normal.? Heart size is normal.? ? Bones and chest wall:? No suspicious bony lesions.? Overlying soft tissues appear unremarkable.? ? IMPRESSION:? No acute cardiopulmonary findings ? ? ? Approved by: Norm Weber M.D. on 12/06/2021 at 10:07? ECG Data Attestation: I personally reviewed and interpreted this ECG as follows: Prior ECG tracings: available for review Interpretation: Sinus bradycardia Ventricular rate of 59 Low-voltage Normal QRS Nonspecific ST T wave changes MDM Narrative Medical decision making narrative: I do not have any specific indication to think that his symptoms today are the result of sarcoid. The lesions on his scalp are most consistent tinea capitis. Had a discussion with him and his regarding this. Will treat for tinea capitis. Have him contact his primary doctor because if there is concern about sarcoid time in the future he would need follow-up with specialists regarding this. Both he and his expressed understanding and agreement with plan. Discharge Plan Departure Patient Disposition: Home Clinical Impression: Tinea capitis, Cramps, muscle, general Instructions: Tinea Capitis Activity Restrictions/Additional Instructions: Do recommend that you stay hydrated. A prescription for medications was sent to [facility] in [place] per your request. I do recommend you contact your [facility] doctor for follow-up. Return to the emergency department for any new or worsening symptoms. Prescriptions: New griseofulvin microsize 500 mg tablet 500 mg PO DAILY 14 Days Qty: 14 0RF Rx Instructions: must administer with high-fat meal or food ketoconazole 2 % shampoo 1 applic topical 3XW 14 Days Qty: 120 3RF Referrals: Miscellaneous,DoctorMD [Primary Care Provider] -
--- NOTE | 2021-12-06 10:13 | DI.RAD.S_ITS ---
PROCEDURE: XR CHEST 1V INDICATIONS: SOB TECHNIQUE: One view of the chest was acquired. COMPARISON: [facility], CR, XR CHEST 1V, 10/20/2017, 12:55. FINDINGS: Surgical changes and devices: None. Lungs and pleura: Lungs are clear. No pleural effusions or pneumothorax. Mediastinum: Mediastinal contours appear normal. Heart size is normal. Bones and chest wall: No suspicious bony lesions. Overlying soft tissues appear unremarkable. IMPRESSION: No acute cardiopulmonary findings Approved by: Norm Weber M.D. on 12/06/2021 at 10:07
[2021-12-06 11:06] LABS: Add Manual Diff / Slide Review NO; Basophils Absolute Auto 0 /uL (0-100); Eosinophils Absolute Auto 100 /uL (0-450); Eosinophils Percent Auto 4.2 % (2-4); Hematocrit 43.3 % (41-53); Hemoglobin 14.3 g/dL (13.5-17.5); Lymphocytes Absolute Auto 1600 /uL (1100-4500); Lymphocytes Percent Auto 45.9 % (25-40); Mean Corpuscular HGB Conc 32.9 % (30-36); Mean Corpuscular Hemoglobin 27.8 PG (26-34); Mean Corpuscular Volume 84.4 fL (80-100); Monocytes Absolute Auto 300 /uL (0-900); Monocytes Percent Auto 7.2 % (3-14); Neutrophils Absolute Auto 1500 /uL (1500-7000); Neutrophils Percent Auto 41.7 % (50-75); Platelet Count 198 X10^3/uL (150-400); Red Blood Cell Count 5.13 X10^6/uL (4.5-5.9); Red Cell Distribution Width 14.4 % (11.6-14.8); White Blood Cell Count 3.5 X10^3/uL (4.5-11.0)
[2021-12-06 11:23] LABS: BUN Creatinine Ratio 13.6 (6-22); Blood Urea Nitrogen 18 mg/dL (9-20); Calcium 9.5 mg/dL (8.4-10.2); Carbon Dioxide 28 mmol/L (22-32); Chloride 100 mmol/L (98-107); Erythrocyte Sedimentation Rate 4 MM/HR (0-15); Estimated Glomerular Filt Rate > 60 mL/min (>60); Glucose 98 mg/dL (70-100); HEMOLYSIS < 15 (0-50); Potassium 4.4 mmol/L (3.4-5.1); Sodium 138 mmol/L (137-145)
[2021-12-06 11:26] LABS: C-Reactive Protein Quant < 0.5 mg/dL (<1.0)
[2021-12-06] MEDS: SODIUM CHLORIDE 0.9% 1,000 ML 1000 ML IV (11:53)
[2021-12-06 12:20] LABS: Thyroid Stimulating Hormone 1.36 uIU/mL (0.47-4.68)
== END 2021-12-06 12:57 | disposition home or self-care (01) ==
PROVIDERS: Emergency Provider Emergency Medicine; Family Provider Nutritionist
DX: B35.0 Tinea barbae and tinea capitis (principal); R25.2 Cramp and spasm; R06.02 Shortness of breath; R07.9 Chest pain, unspecified
CPT/HCPCS: 71045; 80048; 84443; 85025; 85651; 86140; 93005; 93010; 99284

== ENCOUNTER 2022-03-30 13:52 | Emergency (ER) | payer OTHER, MEDICAID, SELFPAY ==
[2022-03-30 14:06] VITALS: BP 143/89; PULSE 72; RESP 16; TEMP 37.1; O2SAT 99; BMI 33.2
--- NOTE | 2022-03-30 16:37 | PC.NURSE ---
updated on red phone. wants to VDC, apologized for wait time and encouraged to stay
[2022-03-30 17:01] VITALS: BP 117/77; PULSE 72; RESP 18; O2SAT 97
[2022-03-30 17:09] VITALS: BP 117/77; PULSE 65; O2SAT 97
[2022-03-30] MEDS: TET,DIPH,PERTUSS(ACELL),VAC/PF 0.5 ML SYRINGE IM (17:10)
--- NOTE | 2022-03-30 17:14 | ED.SKABFB ---
HPI - Skin/Abscess/Foreign Bdy General Chief complaint: Skin/Abscess/Foreign Body Stated complaint: lac on head with looks like a hole with blood Time Seen by Provider: 03/30/22 17:03 Source: patient Mode of arrival: Ambulatory History of Present Illness HPI narrative: 42-year-old male, never smoker, presents to the emergency department with a forehead laceration. Patient was working on his car and was hit in the forehead with a tool causing the laceration. Patient's had a 1st aid kit and was able to irrigate the wound with copious amounts of normal saline. Patient is unsure of his tetanus status. Patient denies any loss of consciousness or current blurry vision or dizziness. Related Data Previous Rx's Medication Instructions Recorded ketoconazole 2 % shampoo 1 applic topical 3XW 2 weeks #120 12/06/21 mL Allergies Allergy/AdvReac Type Severity Reaction Status Date / Time No Known Drug Allergies Allergy Verified 03/30/22 14:05 Review of Systems Review of Systems Narrative: Narrative: See HPI. GENERAL: Denies chills, fatigue, fever, sweats. HEENT: Denies sinus pain, ear pain, sore throat, difficulty swallowing, dizziness. RESPIRATORY: Denies dyspnea, cough, wheezing, sputum. CARDIOVASCULAR: Denies chest pain, palpitations, edema. GASTROINTESTINAL: Denies nausea, vomiting, abdominal pain, diarrhea, constipation. : Denies dysuria, frequency, incontinence, hematuria, urinary retention, flank pain. MSK: Denies weakness, joint pain, or bony pain. SKIN: Denies rash, skin lesions, or pruritis. Endorses forehead laceration. NEUROLOGIC: Denies current weakness, dizziness, headache, numbness, confusion. PSYCHIATRIC: No concerning psychosocial issues. Patient History Medical History Anxiety No significant past medical history Social History Smoking Status: Never smoker Smoking Status: Never smoker alcohol intake frequency: 0-2 drinks per day Substance Use Type: does not use Exam Narrative Exam Narrative: Exam Narrative: GENERAL: This is a well-nourished, well-developed patient, in no acute distress. HEAD: Normocephalic. 2.5 cm vertical laceration on left-side of forehead. EYES: Pupils equal round and reactive. Extraocular motions intact. No scleral icterus, injection or drainage. CARDIOVASCULAR: Regular rate, peripheral pulses intact, cap refill <2 sec. RESPIRATORY: Normal respiratory rate and effort. MSK: Moves all extremities. Normal range of motion, no clubbing or edema. Neurovascularly intact. NEURO: A&O x 3. SKIN: Warm, dry, no rashes or lesions noted. 2.5 cm vertical laceration on left-side of forehead. Initial Vital Signs Initial Vital Signs: Vital Signs Temperature 98.8 F 03/30/22 14:06 Pulse Rate 72 03/30/22 14:06 Respiratory Rate 16 03/30/22 14:06 Blood Pressure 143/89 H 03/30/22 14:06 Pulse Oximetry 99 03/30/22 14:06 Oxygen Delivery Method 03/30/22 14:06 Reviewed Procedures Laceration Repair Laceration 1: Time of procedure: 17:45 Site: other (Forehead) Side (If applicable): left Size (cm): 2.5 Description: linear Depth: simple, single layer Local Anesthetic: lidocaine 2% and with epi Amount of anesthesia used (mL): 4 Skin layer closed with: nylon Skin layer suture size: 5-0 Number of sutures: 7 Technique: simple, interrupted Course Orders Ordered: Discontinued Medications Bacitracin (Bacitracin Oint 0.9 Gm Pckt) 1 applic TOP NOW ONE Stop: 03/30/22 17:42 Last Admin: 03/30/22 17:53 Dose: 1 applic Documented By: BRAEDEN Diphtheria/Tetanus/Acell Pertussis (Tet,Diph,Pertuss(Acell),Vac/Pf 0.5 Ml Syringe) 0.5 ml IM .ONCE ONE Stop: 03/30/22 17:04 Last Admin: 03/30/22 17:10 Dose: 0.5 ml Documented By: BRAEDEN Vital Signs Vital signs: Vital Signs - 8 hr 03/30/22 14:06 03/30/22 17:01 03/30/22 17:09 Temperature 98.8 F Pulse Rate 72 72 65 Respiratory Rate 16 18 Blood Pressure 143/89 H 117/77 117/77 Pulse Oximetry 99 97 97 Oxygen Delivery Method Room Air Room Air Room Air MDM - Skin/Abscess/Foreign Bdy Differential Diagnosis Differential diagnosis: Likely other (Forehead laceration) MDM Narrative Medical decision making narrative: 42-year-old male presents to the emergency department with a left forehead laceration. Site was irrigated, cleansed, anesthetized and closed with 7 sutures. Patient tolerated procedure well. Site was dressed with antibiotic ointment, Telfa pad and gauze. Tetanus status was updated. Discussed plan of care that included suture removal in 7-8 days. Discussed plan of care, proper wound care and return precautions with patient and spouse, who verbalized understanding and was agreeable with course of action. Discharge Plan Departure Patient Disposition: Home Clinical Impression: Forehead laceration Instructions: DI for Laceration Repair Activity Restrictions/Additional Instructions: *You have been diagnosed with a forehead laceration. We were able to close the laceration with 7 sutures. Please return to the emergency department, walk-in clinic or your family doctor in 7-8 days for suture removal. Please watch for signs of infection that include increased redness, swelling, pain or yellow discharge. If this occurs, please follow-up with your family doctor, walk-in clinic or the emergency department for possible antibiotic therapy. You may use Tylenol or ibuprofen as needed for discomfort. For any worsening symptoms that include chest pain, shortness of breath, intolerable pain, etc. please return to the emergency department. *What to do: *Please continue to take your regular medications as directed. [ ] New medication prescriptions sent to your pharmacy: [ ] [ ] New medication written as a paper prescription [ x] No new medications given *Please follow up with your primary care provider in 2-3 days, call for an appointment. Let them know you were seen in the Emergency Department and that we ask that you be seen in follow up. We will electronically transmit a record of today's note if your PCP is in our system *If you do not have a primary care provider please contact the [facility] Resource line at [phone]. They will ask some questions about your medical history and help get you set up with a doctor in the community. ? Return to ER if you should have any new, worsening or concerning symptoms, such as worsening pain, severe headache, confusion, chest pain, difficulty breathing, fever greater than 101 F, shaking chills, persistent vomiting to the point that you cannot drink fluids, or other new or worsening symptoms. Prescriptions: No Action ketoconazole 2 % shampoo 1 applic topical 3XW 14 Days Qty: 120 3RF Referrals: Miscellaneous,Doctor, MD [Primary Care Provider] - Stand Alone Forms: Patient Portal/API
[2022-03-30] MEDS: BACITRACIN OINT 0.9 GM PCKT 1 APPLIC TOP (17:53)
== END 2022-03-30 17:54 | disposition home or self-care (01) ==
PROVIDERS: Emergency Provider Registered Nurse; Family Provider Nutritionist
DX: S01.81XA Laceration without foreign body of other part of head, initial encounter (principal); W22.8XXA Striking against or struck by other objects, initial encounter; Z23 Encounter for immunization
CPT/HCPCS: 12011; 90471; 99283; 90715

== ENCOUNTER → 2022-08-03 09:51 | Outpatient (CLI) | payer OTHER, MEDICAID, SELFPAY | PROVIDERS: Family Provider Nutritionist; Visit Provider Nurse Practitioner Family | DX: J02.9 Acute pharyngitis, unspecified (principal) | CPT/HCPCS: 87070; 87880 ==